=== PATIENT | male | born 1955 | race Caucasian/White ===

== ENCOUNTER 2019-02-14 16:25 | Emergency (ER) | payer OTHER ==
[~2019-02-14] VITALS: Ht 190.5 cm; Wt 80.3 kg
[2019-02-14] MEDS ORDERED: CLONAZEPAM0.5 MG (16:34)
[2019-02-14] MEDS ORDERED: ALDACTONE25 MG (16:35)
[2019-02-14] MEDS ORDERED: LISINOPRIL10 MG (16:35)
[2019-02-14] MEDS ORDERED: METOPROLOL SUCC50 MG (16:35)
[2019-02-14] MEDS ORDERED: ELIQUIS5 MG (16:35)
== END 2019-02-14 17:40 | disposition home or self-care (01) ==
LOC: ER 16:25
DX: R06.02 Shortness of breath (principal); F06.4 Anxiety disorder due to known physiological condition